=== PATIENT | male | born 1945 | race Caucasian/White ===

== ENCOUNTER 2017-07-21 13:24 | Emergency (ER) | payer MEDICARE, BC ==
[~2017-07-21] VITALS: Ht 177.8 cm; Wt 70.4 kg
[2017-07-21 14:01] VITALS: BP 132/78
== END 2017-07-21 15:24 | disposition home or self-care (01) ==
LOC: ER 13:24
DX: S61.216A Laceration without foreign body of right little finger without damage to nail, initial encounter (principal); S61.212A Laceration without foreign body of right middle finger without damage to nail, initial encounter; S61.210A Laceration without foreign body of right index finger without damage to nail, initial encounter; W26.0XXA Contact with knife, initial encounter; Y93.89 Activity, other specified; Y92.89 Other specified places as the place of occurrence of the external cause; Y99.8 Other external cause status
CPT/HCPCS: 12002; 99283; A6446; A6449